=== PATIENT | female | born 1965 | race Caucasian/White ===

== ENCOUNTER 2016-10-01 19:21 | Emergency (ER) | payer OTHER ==
[~2016-10-01] VITALS: Ht 165.1 cm; Wt 81.6 kg
[2016-10-01 19:22] VITALS: BP_SYST 126
[2016-10-01] MEDS ORDERED: LORazepam 2 MG/ML VIAL IVP ONE (19:45)
[2016-10-01] MEDS ORDERED: MORPHINE 2 MG/ML INJ. SYRINGE IVP ONE (19:45)
[2016-10-01] MEDS ORDERED: ASPIRIN 81 MG TAB.CHEW PO ONE (19:45)
[2016-10-01 19:57] LABS: HEMATOCRIT 38.8 % (36-48); HEMOGLOBIN 13.1 g/dL (12.0-16.0); MEAN CORPUSCULAR HEMOGLOBIN 31 pg (27-31); MEAN CORPUSCULAR HGB CONC 34 % (32-36); MEAN CORPUSCULAR VOLUME 91 fL (79.0-98.0); PLATELET COUNT (AUTO) 197 K/uL (130-430); RED BLOOD CELL COUNT(AUTO) 4.27 MIL/uL (4.2-6.2); RED CELL DISTRIBUTION WIDTH 11.7 % (9.0-15.0)
[2016-10-01 20:11] LABS: CALCIUM 8.8 mg/dL (8.4-11.0); CREATININE 0.94 mg/dL (0.55-1.30); POTASSIUM 3.7 mmol/L (3.5-5.1)
[2016-10-01 20:14] LABS: ATYPICAL LYMPHOCYTES % 0 % (0-0); BAND % (MANUAL) 0 % (0-6); BASOPHILS % (MANUAL) 0 % (0-2); EOSINOPHILS % (MANUAL) 8 % (0-7); LYMPHOCYTES % (MANUAL) 34 % (20-46); MONOCYTES % (MANUAL) 16 % (0-11); PROTHROMBIN TIME 10.9 SECS (9.5-12.5)
[2016-10-01] MEDS ORDERED: LORazepam 2 MG/ML VIAL ONE (20:14)
[2016-10-01 20:16] LABS: ALBUMIN 3.9 g/dL (3.4-4.8); TOTAL BILIRUBIN 0.3 mg/dL (0.0-1.0); TOTAL PROTEIN, SERUM 7.5 g/dL (6.4-8.3)
[2016-10-01 20:40] LABS: FREE T4 (FREE THYROXINE) 0.8 ng/dL (0.6-1.6); THYROID STIMULATING HORMONE 0.09 uIu/mL (0.34-4.82)
[2016-10-01 21:18] VITALS: BP_SYST 112
== END 2016-10-01 21:18 | disposition home or self-care (01) ==
LOC: SED 19:21
DX: F41.9 Anxiety disorder, unspecified (principal); E03.9 Hypothyroidism, unspecified
CPT/HCPCS: 36415; 71010; 80053; 82550; 83735; 84100; 84439; 84443; 84479; 84484; 85007; 85027; 85610; 93005; 96374; 96375; 99285; J2060; J2270